=== PATIENT | female | born 1930 | race Caucasian/White ===

== ENCOUNTER 2017-01-03 08:32 | Day surgery (SDC) | payer MEDICARE ==
[2017-01-03] MEDS ORDERED: ALPRAZolam 0.25 MG TAB PO ONE (08:33)
[2017-01-03] MEDS ORDERED: HYDROmorphone 1 MG/ML 1 ML SYRINGE IVP PRN (08:33)
[2017-01-03 09:18] VITALS: RESP 14; TEMP 97.5
[2017-01-03 09:32] LABS: Mean Platelet Volume 6.9
[2017-01-03 09:34] LABS: Prothrombin Time 10.6 sec (9.0-12.0)
[2017-01-03 10:18] VITALS: BP 145/85; PULSE 72
--- NOTE | 2017-01-03 11:26 | CT ---
EXAMINATION TYPE: CT discontinued procedure DATE OF EXAM: 01/03/2017 COMPARISON: NONE HISTORY: discontinued liver biopsy CT DLP: 384.0 mGycm Automated exposure control for dose reduction was used. FINDINGS: Safe percutaneous access was not present. Case discussed with the patient and the patient wished to d efer procedure. MRI recommended to fully assess the lesion. IMPRESSION: DEFERRED PROCEDURE RECOMMEND MRI TO FULLY ASSESS THE LESION PRIOR TO BIOPSY. ON TODAY'S EXAM PERCUTAN EOUS ACCESS WAS LIMITED.
== END 2017-01-03 11:22 | disposition home or self-care (01) ==
LOC: RADPROMAIN 08:32
PROVIDERS: ATTEND Surgery
DX: K76.89 Other specified diseases of liver (principal); Z53.09 Procedure and treatment not carried out because of other contraindication
CPT/HCPCS: 76380; 85049; 85610

== ENCOUNTER → 2017-01-16 | Outpatient (CLI) | payer MEDICARE, OTHER ==
[2017-01-16 14:27] LABS: Non-African American GFR(MDRD) 59 (>60 ml/min/1.73 sqM)
--- NOTE | 2017-01-17 16:54 | MR ---
EXAMINATION TYPE: MR liver wo/w con DATE OF EXAM: 01/16/2017 COMPARISON: NONE HISTORY: Hepatic lesion. Characterization. History of breast cancer in 2007. CONTRAST: Standard multiplanar, multisequence MRI departmental protocol utilizing 10 mL intravenous Gadavist FINDINGS: There is a mildly nodular contour of the liver most evident on out of phase imaging. There is no evid ence of signal dropout between in phase and out of phase imaging. At the level the middle portal vein predominantly within segment IVb of the liver there is a T1 hypointense mass containing mild signal dropout on out of phase imaging (difference of 48). This lesion is subtly T2 hyperintense. Mild intra hepatic biliary ductal dilatation is seen inferiorly. This is demonstrated on series 901 image 291. P rogressive delayed enhancement is seen with delayed enhancement of a pseudocapsule. There is thought to be subtle capsular retraction with contour change of the liver peripheral to the mass. The portal vein appears patent. This mass measures 4.2 x 3.3 cm. This is a solitary lesion. No recanalization of the umbilical vein is seen. No gastrohepatic or splenic varices are noted. Hypointense T2 appearance of the liver is not maintained on fat saturation sequences and is not favored to represent iron over load. There is no evidence of extrahepatic biliary ductal dilatation. Few gallstones layer within the gallb ladder body. Bilateral renal sinus cysts and punctate right lower pole cortical cyst that is too small to accurate ly characterize are seen as well as extrarenal pelvis sees. Adrenal glands and spleen are of normal e nhancement and morphology. 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 No pancreatic ductal dilatatio n. Moderate hiatal hernia is also incidentally noted. IMPRESSION: 1. 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 Definitive percutaneous biopsy is recommended. 2. 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 Annual follow-up is recommend ed with MRCP with and without contrast. 3. Bilateral renal sinus cysts. 4. Cholelithiasis. 5. Moderate hiatal hernia.
== END | disposition home or self-care (01) ==
LOC: RADMRIMAIN 13:40
PROVIDERS: ATTEND Surgery
DX: R16.0 Hepatomegaly, not elsewhere classified (principal)
CPT/HCPCS: 82565; 74183; 36415; A9581

== ENCOUNTER 2017-02-11 08:52 | Day surgery (SDC) | payer MEDICARE, OTHER ==
[~2017-02-11 08:52] MED LIST: ALPRAZolam 0.25 MG TAB PO ONE; HYDROmorphone 0.5 MG/0.5 ML SYRINGE IVP PRN
[2017-02-11 09:24] LABS: Mean Platelet Volume 6.9
[2017-02-11 09:30] VITALS: RESP 14; TEMP 97.7
[2017-02-11 09:41] LABS: Partial Thromboplastin Time 24.1 sec (22.0-30.0)
[2017-02-11 09:48] LABS: Prothrombin Time 10.6 sec (9.0-12.0)
[2017-02-11 09:58] VITALS: BP 181/82; PULSE 61
--- NOTE | 2017-02-11 12:40 | US ---
Discontinued liver biopsy HISTORY: Abnormal CT, abnormal liver MRI, breast cancer Correlation to prior CT 01/03/2017, MR liver 01/16/2017 Real-time ultrasound was performed for evaluation for liver biopsy. The previously described abnormal ities from prior CT and MRI within the liver is only minimal residual mixed hypoechoic focus measurin g approximately 1.5 x 2 cm. Following discussion with the patient, no biopsy was performed at this time. Follow-up CT or MRI scan suggested. Case discussed with Dr. Gilman personally.
== END 2017-02-11 10:43 | disposition home or self-care (01) ==
LOC: RADPROMAIN 08:52
PROVIDERS: ATTEND Surgery
DX: K76.89 Other specified diseases of liver (principal); C50.919 Malignant neoplasm of unspecified site of unspecified female breast; Z53.8 Procedure and treatment not carried out for other reasons
CPT/HCPCS: 76705; 85049; 85610; 85730

== ENCOUNTER → 2017-06-26 | Outpatient (CLI) | payer MEDICARE, OTHER ==
[2017-06-26 14:15] LABS: Basophils % (A) 1 %; Eosinophils # (A) 0.2 k/uL (0-0.7); Eosinophils % (A) 2 %; HCT 35.8 % (34.0-46.0); Lymphocytes # (A) 1.4 k/uL (1.0-4.8); Lymphocytes % (A) 20 %; MCH 31.8 pg (25.0-35.0); MCHC 33.5 g/dL (31.0-37.0); Mean Platelet Volume 6.4; Monocytes # (A) 0.5 k/uL (0-1.0); Monocytes % (A) 7 %; Neutrophils # (A) 4.8 k/uL (1.3-7.7); Neutrophils % (A) 67 %; Platelet Count 288 k/uL (150-450); RBC 3.76 m/uL (3.80-5.40); RDW 12.9 % (11.5-15.5); WBC 7.1 k/uL (3.8-10.6)
[2017-06-26 14:58] LABS: Calcium 9.3 mg/dL (8.4-10.2); Potassium 4.6 mmol/L (3.5-5.1)
== END | disposition home or self-care (01) ==
LOC: LABPAT 13:19
PROVIDERS: ATTEND Urology
DX: Z01.812 Encounter for preprocedural laboratory examination (principal); R31.0 Gross hematuria
CPT/HCPCS: 80048; 85025

== ENCOUNTER 2017-07-03 05:58 | Day surgery (SDC) | payer MEDICARE, OTHER ==
[2017-06-27 15:00] VITALS: BMI 32.5
[~2017-07-03 05:58] MED LIST changes: -ALPRAZolam 0.25 MG TAB PO ONE; -HYDROmorphone 0.5 MG/0.5 ML SYRINGE IVP PRN; +LACTATED RINGERS 1,000 ML IV SCH; +MORPHINE SULFATE 4 MG/ML SYRINGE IV PRN; +Pre Op ABX Message 1 EACH MISC MISCELLANE ONE
[2017-07-03 06:50] VITALS: PULSE 70; RESP 16; TEMP 97.7
[2017-07-03 06:53] VITALS: BP 199/81
== END 2017-07-03 07:35 | disposition home or self-care (01) ==
LOC: OR 05:58
PROVIDERS: ATTEND Urology
DX: R31.0 Gross hematuria (principal); Z53.8 Procedure and treatment not carried out for other reasons

== ENCOUNTER → 2017-07-17 | Outpatient (CLI) | payer MEDICARE, OTHER ==
[2017-07-17 12:54] LABS: Basophils % (A) 0 %; Eosinophils # (A) 0.2 k/uL (0-0.7); Eosinophils % (A) 2 %; HCT 36.5 % (34.0-46.0); HGB 12.4 gm/dL (11.4-16.0); Lymphocytes # (A) 1.5 k/uL (1.0-4.8); Lymphocytes % (A) 19 %; MCV 94.3 fL (80.0-100.0); Mean Platelet Volume 6.4; Monocytes # (A) 0.6 k/uL (0-1.0); Monocytes % (A) 7 %; Neutrophils # (A) 5.4 k/uL (1.3-7.7); Neutrophils % (A) 69 %; Platelet Count 287 k/uL (150-450); RBC 3.87 m/uL (3.80-5.40); RDW 12.5 % (11.5-15.5); WBC 7.8 k/uL (3.8-10.6)
[2017-07-17 13:08] LABS: Calcium 9.7 mg/dL (8.4-10.2); Potassium 4.4 mmol/L (3.5-5.1)
== END | disposition home or self-care (01) ==
LOC: LABPAT 11:58
PROVIDERS: ATTEND Urology
DX: Z01.812 Encounter for preprocedural laboratory examination (principal); R31.0 Gross hematuria
CPT/HCPCS: 36415; 80048; 85025

== ENCOUNTER 2017-07-24 06:41 | Day surgery (SDC) | payer MEDICARE, OTHER ==
[2017-07-18 14:42] VITALS: BMI 30.9
[~2017-07-24 06:41] MED LIST changes: +LIDOCAINE 1% 20 ML VIAL (10MG/ML) FOR IV START INTRADERMA PRN; -MORPHINE SULFATE 4 MG/ML SYRINGE IV PRN
[2017-07-24] MEDS ORDERED: ONDANSETRON 4 MG/2 ML VIAL IVP ONE (07:56)
[2017-07-24] MEDS ORDERED: fentaNYL (PF) 50 MCG/ML 2 ML AMP ONE (08:04)
[2017-07-24] MEDS ORDERED: PROPOFOL 10 MG/ML 20 ML VIAL IV ONE (08:04)
[2017-07-24] MEDS ORDERED: LIDOCAINE 1% INJ 10MG/ML (20 ML MDV) ONE (08:04)
[2017-07-24] MEDS ORDERED: SUCCINYLCHOLINE CHLORIDE 100 MG/5 ML SYR IV ONE (08:04)
[2017-07-24] MEDS ORDERED: ceFAZolin 1,000 MG VIAL IVPB ONE (08:32)
[2017-07-24 08:53] VITALS: TEMP 97.4
--- NOTE | 2017-07-24 08:57 | P.OP ---
Date of Procedure: 07/24/17 Preoperative Diagnosis: History of gross hematuria with abnormality on anterior bladder wall Postoperative Diagnosis: History of gross hematuria with abnormality on anterior bladder wall Procedure(s) Performed: Transurethral biopsy of abnormality on the anterior bladder wall Anesthesia: CONCEPCIONA Surgeon: Alec Bey Estimated Blood Loss (ml): 3 Pathology: other (Biopsy anterior bladder wall) Condition: stable Disposition: PACU Indications for Procedure: The patient is an 87-year-old female with a history of gross hematuria. Computed tomography scan of the abdomen and pelvis showed no abnormalities of the upper urinary system. Cystoscopy in the office identified irregularity on the anterior bladder wall near the bladder neck. The patient has a history of pelvic radiation therapy and it's unclear whether the abnormality is from sequela from radiation therapy or another problem. Biopsy of the abnormality is planned. Description of Procedure: The patient was taken to the operating suite where adequate general anesthesia via orotracheal intubation was instituted. The patient was placed in the dorsal lithotomy position with her legs suspended from padded Khadar stirrups. The genitalia was prepped with Betadine soap and draped in a sterile fashion. The external genitalia and urethral meatus were unremarkable. The 25-Frisian resectoscope sheath with obturator was inserted into the bladder. The bladder was examined. Both ureteral orifices were of normal location and configuration and effluxed clear urine. There were ectatic vessels throughout the bladder consistent with previous radiation therapy. On the anterior bladder wall near the bladder neck was an area of edema and mucosal irregularity measuring 1-1/2- 2 cm in diameter. The remainder the bladder was unremarkable. Using the loop cutting electrode [employer] samples from the anterior bladder wall were obtained. Bleeding was minimal and was controlled using electrocautery. The biopsies were retrieved from the bladder through the resectoscope. The bladder was drained and the resectoscope was withdrawn. A 16 -Frisian Zarco catheter was inserted and was left to gravity drainage. The patient tolerated the procedure well and left the operative room awake and in satisfactory condition. Blood loss was less than 2 or 3 mL. Patient's catheter will remain in place for 2-3 days prior to removal. Further recommendations are dependent on the results of the biopsies obtained.
[2017-07-24 09:55] VITALS: RESP 18
[2017-07-24 10:44] VITALS: BP 169/69; PULSE 61
== END 2017-07-24 11:36 | disposition home or self-care (01) ==
LOC: OR 06:41
PROVIDERS: ATTEND Urology
DX: C67.9 Malignant neoplasm of bladder, unspecified (principal); Z85.89 Personal history of malignant neoplasm of other organs and systems; E66.9 Obesity, unspecified; Z68.30 Body mass index [BMI] 30.0-30.9, adult; I10 Essential (primary) hypertension; E07.9 Disorder of thyroid, unspecified; Z79.2 Long term (current) use of antibiotics; Z79.899 Other long term (current) drug therapy; Z88.6 Allergy status to analgesic agent; Z88.8 Allergy status to other drugs, medicaments and biological substances; Z91.048 Other nonmedicinal substance allergy status
CPT/HCPCS: 88305; 52204; J0690; J2001; J3010; J0330; J2704

== ENCOUNTER 2017-09-23 11:04 | Inpatient (IN) | payer MEDICARE, OTHER ==
[2017-09-23] MEDS ORDERED: SODIUM CHLORIDE 0.9% 1,000 ML IV ONE (11:44)
--- NOTE | 2017-09-23 11:50 | ED ---
General Adult HPI - General Chief complaint: Weakness Stated complaint: weakness Time Seen by Provider: 09/23/17 11:22 Source: patient Mode of arrival: EMS Limitations: no limitations - History of Present Illness Initial comments: Patient is an 87-year-old female presents with the chief complaint of Rigors and weakness. The patient states that she has bladder cancer that is currently not being treated, patient states that she has already had radiation and is unsure if she wants to have chemo. she was recently discharged from a hospice home and was doing well at her home until last night. the patient states she currently is not enrolled in hospice. she cannot identify any inciting incidences, nor does she identify any localizing symptoms. there are no aggravating or alleviating factors. timing is constant. she admits to nausea and vomiting. she has mild pain in the RLQ - Related Data Home Medications Medication Instructions Recorded Confirmed Levothyroxine Sodium [Synthroid] 100 mcg PO DAILY 12/25/16 09/23/17 Lisinopril [Zestril] 20 mg PO DAILY 07/18/17 09/23/17 Cystex Cranberry 15 ml PO DAILY 09/23/17 09/23/17 Mirabegron [Myrbetriq] 50 mg PO DAILY 09/23/17 09/23/17 Allergies Allergy/AdvReac Type Severity Reaction Status Date / Time No Known Allergies Allergy Verified 09/23/17 11:51 Review of Systems ROS Statement: Those systems with pertinent positive or pertinent negative responses have been documented in the HPI. ROS Other: All systems not noted in ROS Statement are negative. Constitutional: Reports: chills Respiratory: Reports: cough Past Medical History Past Medical History: Hypertension, Thyroid Disorder Additional Past Medical History / Comment(s): CA uterine, breast cancer 2006 ( radiation treatment - patient says it was breast was a very vague diagnosis and was sent to 2 different labs)- urosepsis 12/06, low calcium, anemia, Chronic recurrent UTI, recent blood and blood clots in urine-pt notified dr of sx History of Any Multi-Drug Resistant Organisms: None Reported Past Surgical History: Hysterectomy, Joint Replacement, Tonsillectomy Additional Past Surgical History / Comment(s): right knee replacement, cataracts bilateral, surgery on bilateral feet. Past Anesthesia/Blood Transfusion Reactions: No Reported Reaction Past Psychological History: No Psychological Hx Reported Smoking Status: Former smoker - Past Family History Father Family Medical History: Cancer Additional Family Medical History / Comment(s): TESTICULAR Mother Family Medical History: No Reported History General Exam Limitations: no limitations General appearance: alert, in no apparent distress Head exam: Present: atraumatic, normocephalic Eye exam: Present: normal appearance, PERRL ENT exam: Present: mucous membranes moist Neck exam: Present: normal inspection Respiratory exam: Present: normal lung sounds bilaterally. Absent: respiratory distress, wheezes Cardiovascular Exam: Present: regular rate, normal rhythm GI/Abdominal exam: Present: soft, tenderness (RLQ mildly tender to palpation). Absent: distended Rectal exam: Present: deferred Extremities exam: Present: normal inspection Back exam: Present: normal inspection Neurological exam: Present: alert, oriented X3 Psychiatric exam: Present: normal affect, normal mood Skin exam: Present: warm, dry, intact Course Vital Signs 09/23/17 09/23/17 09/23/17 11:07 12:03 13:48 Temperature 97.4 F L Pulse Rate 100 85 Respiratory 18 18 18 Rate Blood Pressure 153/77 91/50 O2 Sat by Pulse 95 96 Oximetry Medical Decision Making - Medical Decision Making patient with a history of bladder CA presents with a CC of weakness and rigors. on initial evaluation, VS stable, patient in no acute distress. patient to be evaluated with basic labs, EKG, and troponin. chest xray and CT abdomen / pelvis included in work up. EKG performed at 1257 shows NSR with a rate of 94 BPM. there is some artifact that somewhat limits interpretation, however segments appear to be within normal limits, no ST elevations or depressions. EKG essentially unremarkable. 1:39PM Lab called me with a critical troponin of 0.117. at this time, patient given aspirin, she denies chest pain, will hold on anticoagulation at this time. CT abdomen and pelvis shows b/l hydronephrosis with left sided hydroureter. no obstruction seen. there is air within the urinary bladder all consistent with pyelonephritis. patients microbiology reviewed, no previous records. patient started on rocephin. will plan to admit patient for IV abx and hydration. Case discussed with Dr. Greenberg who accepts admission with consult to Oncology and Cardiology. patient agreeable with care plan. - Lab Data Result diagrams: 09/23/17 12:30 09/23/17 12:30 Lab Results 09/23/17 09/23/17 09/23/17 Range/Units 12:30 12:30 12:30 WBC 15.0 H (3.8-10.6) k/uL RBC 4.00 (3.80-5.40) m/uL Hgb 12.1 (11.4-16.0) gm/dL Hct 37.1 (34.0-46.0) % MCV 92.8 (80.0-100.0) fL MCH 30.2 (25.0-35.0) pg MCHC 32.6 (31.0-37.0) g/dL RDW 14.3 (11.5-15.5) % Plt Count 258 (150-450) k/uL Neutrophils % (Manual) 76 % Band Neutrophils % 19 % Lymphocytes % (Manual) 4 % Monocytes % (Manual) 1 % Metamyelocytes % 2 % Neutrophils # (Manual) 14.20 H (1.3-7.7) k/uL Lymphocytes # (Manual) 0.60 L (1.0-4.8) k/uL Monocytes # (Manual) 0.15 (0-1.0) k/uL Metamyelocytes # (Man) 0.30 H (0) k/uL Nucleated RBCs 0 (0-0) /100 WBC Sodium 141 (137-145) mmol/L Potassium 4.1 (3.5-5.1) mmol/L Chloride 103 (98-107) mmol/L Carbon Dioxide 25 (22-30) mmol/L Anion Gap 13 mmol/L BUN 20 H (7-17) mg/dL Creatinine 1.29 H (0.52-1.04) mg/dL Est GFR (CKD-EPI)AfAm 43 (>60 ml/min/1.73 sqM) Est GFR (CKD-EPI)NonAf 37 (>60 ml/min/1.73 sqM) Glucose 121 H (74-99) mg/dL Calcium 9.2 (8.4-10.2) mg/dL Total Bilirubin 0.6 (0.2-1.3) mg/dL AST 30 (14-36) U/L ALT 21 (9-52) U/L Alkaline Phosphatase 66 (38-126) U/L Troponin I 0.117 H* (0.000-0.034) ng/mL Total Protein 6.1 L (6.3-8.2) g/dL Albumin 3.2 L (3.5-5.0) g/dL Urine Color Urine Appearance (Clear) Urine pH (5.0-8.0) Ur Specific [place] (1.001-1.035) Urine Protein (Negative) Urine Glucose (UA) (Negative) Urine Ketones (Negative) Urine Blood (Negative) Urine Nitrite (Negative) Urine Bilirubin (Negative) Urine Urobilinogen (<2.0) mg/dL Ur Leukocyte Esterase (Negative) Urine RBC (0-5) /hpf Urine WBC (0-5) /hpf Urine WBC Clumps (None) /hpf Ur Squamous Epith Cells (0-4) /hpf Urine Bacteria (None) /hpf Urine Mucus (None) /hpf 09/23/17 Range/Units 12:30 WBC (3.8-10.6) k/uL RBC (3.80-5.40) m/uL Hgb (11.4-16.0) gm/dL Hct (34.0-46.0) % MCV (80.0-100.0) fL MCH (25.0-35.0) pg MCHC (31.0-37.0) g/dL RDW (11.5-15.5) % Plt Count (150-450) k/uL Neutrophils % (Manual) % Band Neutrophils % % Lymphocytes % (Manual) % Monocytes % (Manual) % Metamyelocytes % % Neutrophils # (Manual) (1.3-7.7) k/uL Lymphocytes # (Manual) (1.0-4.8) k/uL Monocytes # (Manual) (0-1.0) k/uL Metamyelocytes # (Man) (0) k/uL Nucleated RBCs (0-0) /100 WBC Sodium (137-145) mmol/L Potassium (3.5-5.1) mmol/L Chloride (98-107) mmol/L Carbon Dioxide (22-30) mmol/L Anion Gap mmol/L BUN (7-17) mg/dL Creatinine (0.52-1.04) mg/dL Est GFR (CKD-EPI)AfAm (>60 ml/min/1.73 sqM) Est GFR (CKD-EPI)NonAf (>60 ml/min/1.73 sqM) Glucose (74-99) mg/dL Calcium (8.4-10.2) mg/dL Total Bilirubin (0.2-1.3) mg/dL AST (14-36) U/L ALT (9-52) U/L Alkaline Phosphatase (38-126) U/L Troponin I (0.000-0.034) ng/mL Total Protein (6.3-8.2) g/dL Albumin (3.5-5.0) g/dL Urine Color Dark Red Urine Appearance Turbid H (Clear) Urine pH 7.0 (5.0-8.0) Ur Specific [place] 1.016 (1.001-1.035) Urine Protein 2+ H (Negative) Urine Glucose (UA) Negative (Negative) Urine Ketones Negative (Negative) Urine Blood Small H (Negative) Urine Nitrite Negative (Negative) Urine Bilirubin Negative (Negative) Urine Urobilinogen <2.0 (<2.0) mg/dL Ur Leukocyte Esterase Moderate H (Negative) Urine RBC >182 H (0-5) /hpf Urine WBC >182 H (0-5) /hpf Urine WBC Clumps Many H (None) /hpf Ur Squamous Epith Cells 74 H (0-4) /hpf Urine Bacteria Many H (None) /hpf Urine Mucus Many H (None) /hpf Disposition Clinical Impression: Elevated troponin, JEAN (acute kidney injury), Urinary tract infection, Hydronephrosis Disposition: ADMITTED IP TO THIS HOSP Condition: Good Referrals: Kesha Kendall DO [Primary Care Provider] - 1-2 days Decision to Admit Reason: Admit from [facility] - Out of Hospital Transfer - Req. Specs Out of Hospital Transfer - Requested Specifics: Other Non-Acute
[2017-09-23] MEDS ORDERED: PANTOPRAZOLE 40 MG/10 ML VIAL IVP STA (12:41)
[2017-09-23] MEDS ORDERED: ONDANSETRON 4 MG/2 ML VIAL IVP STA (12:41)
[2017-09-23 12:57] LABS: Albumin 3.2 g/dL (3.5-5.0); Calcium 9.2 mg/dL (8.4-10.2); Potassium 4.1 mmol/L (3.5-5.1); Total Bilirubin 0.6 mg/dL (0.2-1.3); Total Protein 6.1 g/dL (6.3-8.2)
[2017-09-23 12:59] LABS: HCT 37.1 % (34.0-46.0); HGB 12.1 gm/dL (11.4-16.0); MCH 30.2 pg (25.0-35.0); MCHC 32.6 g/dL (31.0-37.0); MCV 92.8 fL (80.0-100.0); Mean Platelet Volume 6.7; Platelet Count 258 k/uL (150-450); RDW 14.3 % (11.5-15.5)
--- NOTE | 2017-09-23 13:07 | XR ---
EXAMINATION TYPE: XR chest 2V DATE OF EXAM: 09/23/2017 COMPARISON: NONE HISTORY: Fall with weakness TECHNIQUE: Frontal and lateral views of the chest are obtained. FINDINGS: There is no focal air space opacity, pleural effusion, or pneumothorax seen. The cardiac silhouette size is within normal limits. The osseous structures are intact. Multilevel mild degener ative changes of the thoracic spine and acromioclavicular arthropathy are noted. IMPRESSION: No acute cardiopulmonary process.
[2017-09-23 13:13] LABS: Appearance,Urine Turbid (Clear); Bacteria,Urine Many /hpf; Bilirubin,Urine Negative (Negative); Blood,Urine Small (Negative); Color,Urine Dark Red; Glucose,Urine (UA) Negative (Negative); Ketones,Urine Negative (Negative); Leukocyte Esterase,Urine Moderate (Negative); Mucus,Urine Many /hpf; Nitrite,Urine Negative (Negative); Protein,Urine 2+ (Negative); RBC,Urine >182 /hpf (0-5); Squamous Epithelial Cell,Urine 74 /hpf (0-4); Urobilinogen,Urine <2.0 mg/dL (<2.0); WBC,Urine >182 /hpf (0-5)
[2017-09-23 13:24] LABS: Specific Gravity,Urine 1.016 (1.001-1.035)
--- NOTE | 2017-09-23 13:33 | CT ---
EXAMINATION TYPE: CT abdomen pelvis wo con DATE OF EXAM: 09/23/2017 COMPARISON: NONE HISTORY: Weakness and pain CT DLP: 766 mGycm Examination of the solid and hollow viscera is limited given the lack of contrast. FINDINGS: LUNG BASES: No evidence for nodule. No evidence for infiltrate. LIVER/GB: There is evidence of cholelithiasis. No wall thickening is present. No space-occupying hepa tic lesion. PANCREAS: No pancreatic mass identified. No inflammatory process seen. SPLEEN: No evidence for splenomegaly. No intrasplenic lesions seen. ADRENALS: No adrenal nodules identified. No evidence for thickening. KIDNEYS: No evidence for renal mass. There is bilateral hydronephrosis left greater than right with l eft-sided hydroureter. Perinephric stranding is evident. I do not see evidence for obstructing calcul us at this time. Zarco catheter is seen within the urinary bladder. There is air within the urinary b ladder as well as hyperdense material which may reflect hemorrhagic contents. Correlate clinically. BOWEL: Appendix has a normal appearance. No evidence of bowel obstruction. No inflammatory process. M oderate fixed hiatal hernia noted. Lymph nodes: No evidence for adenopathy greater than 1 cm. Abdominal aorta: Atheromatous changes seen. No evidence for aneurysm. Genital organs: No significant abnormality. Other: No significant abnormality. IMPRESSION: There is bilateral hydronephrosis left greater than right with left-sided hydroureter. Perinephric st randing is evident. I do not see evidence for obstructing calculus at this time. Zarco catheter is se en within the urinary bladder. There is air within the urinary bladder as well as hyperdense material which may reflect hemorrhagic contents.
[2017-09-23] MEDS ORDERED: cefTRIAXone IN SWFI 1,000 MG/10 ML SYRINGE IVP STA (13:37)
[2017-09-23] MEDS ORDERED: ASPIRIN 81 MG PO STA (13:37)
[2017-09-23 13:41] LABS: Band Neutrophils % 19 %; Metamyelocytes % 2 %; Monocytes # (M) 0.15 k/uL (0-1.0); Neutrophils % (M) 76 %; Nucleated Red Blood Cells 0 /100 WBC (0-0); Total Cells Counted 200
[2017-09-23] MEDS ORDERED: IBUPROFEN 400 MG TAB PO PRN (13:55)
[2017-09-23] MEDS ORDERED: HYDROcodone/APAP 5-325MG 1 EACH TAB PO PRN (13:55)
[2017-09-23] MEDS ORDERED: ONDANSETRON 4 MG/2 ML VIAL IVP PRN (13:55)
[2017-09-23] MEDS ORDERED: NALOXONE 0.4 MG/ML 1 ML VIAL IV PRN (13:55)
[2017-09-23] MEDS: MYRBETRIQ (Mirabegron) 50 MG PO SCH (17:15)
[2017-09-23] MEDS: LACTATED RINGERS 1,000 ML IV SCH (17:15)
[2017-09-24] MEDS: LACTATED RINGERS 1,000 ML IV SCH ×2 (03:00→11:48)
[2017-09-24] MEDS: LEVOTHYROXINE 100 MCG TAB PO SCH (05:46)
[2017-09-24 06:20] LABS: HCT 31.6 % (34.0-46.0); HGB 10.1 gm/dL (11.4-16.0); MCH 29.9 pg (25.0-35.0); MCHC 31.9 g/dL (31.0-37.0); MCV 93.8 fL (80.0-100.0); Mean Platelet Volume 6.4; Platelet Count 187 k/uL (150-450); RBC 3.37 m/uL (3.80-5.40); RDW 14.3 % (11.5-15.5); WBC 23.3 k/uL (3.8-10.6)
[2017-09-24 06:25] LABS: Calcium 8.3 mg/dL (8.4-10.2); Potassium 4.8 mmol/L (3.5-5.1)
[2017-09-24 07:13] LABS: Band Neutrophils % 34 %; Metamyelocytes % 3 %; Monocytes # (M) 0.93 k/uL (0-1.0); Neutrophils % (M) 57 %; Nucleated Red Blood Cells 0 /100 WBC (0-0); Total Cells Counted 200
[2017-09-24 07:14] LABS: Toxic Vacuolation Present
[2017-09-24 07:15] LABS: Anisocytosis (M) Present
[2017-09-24 07:16] LABS: Poikilocytosis (M) Present; Polychromasia Present
[2017-09-24] MEDS: MYRBETRIQ (Mirabegron) 50 MG PO SCH (08:02)
[2017-09-24] MEDS: PIPERACILLIN-TAZOBACTAM 3.375 GM in DEXTROSE/WATER 1 50ML.BAG IVPB SCH ×2 (11:49→16:08)
--- NOTE | 2017-09-24 12:00 | HP ---
HISTORY AND PHYSICAL DATE OF OF ADMISSION: 09/23/2017 DATE OF SERVICE: 09/23/2017 PRESENT COMPLAINT: Chills, rigors. HISTORY OF PRESENTING COMPLAINT: This is a patient I saw yesterday on September 23, 2017 on the medical floor. Patient follows with Dr. Kendall. Chronic stable medical conditions include hypertension, hypothyroid. Patient has a history of uterine cancer treated with radiation treatment and breast cancer treated with radiation treatment in the past. Patient has been diagnosed with bladder cancer. Did see Dr. Bey and was due to go down to [facility]. Patient has been losing her appetite and weight loss, felt really poorly, had chills and rigors and presented to the ER. Patient was given one dose of IV ceftriaxone, sudden IV fluids and also had a small troponin leak for which Cardiology was consulted. Denies any chest pain. Patient definitely has urinary symptoms with frequency and hard frequency and strong urine. Patient feels rather exhausted, run down; hence, admitted for the same. REVIEW OF SYSTEMS: CONSTITUTIONAL: Chills, rigors, tired, run down, decreased appetite. HEENT: None. RESPIRATORY: None. CARDIOVASCULAR: None. GASTROINTESTINAL: None. GENITOURINARY: As above. MUSCULOSKELETAL: None. DERMATOLOGICAL: None. HEMATOLOGICAL: None. LYMPHATIC: None. PSYCHIATRY: None. NEUROLOGICAL: None. PAST MEDICAL HISTORY: Hypertension, uterine cancer treated with radiation, breast cancer in 2006 treated with radiation, anemia, recurrent UTIs, bladder cancer diagnosed in July of this year. PAST SURGICAL HISTORY: Bladder surgery, hysterectomy, joint replacement, tonsillectomy, right knee replacement, bilateral cataract surgery. SOCIAL HISTORY: Lives by herself. Stopped smoking 25 years ago. Smoked for 25 years. Normally uses a walker. FAMILY HISTORY: Testicular cancer. HOME MEDICATIONS: 1. Myrbetriq 50 mg p.o. daily. 2. Zestril 20 mg p.o. daily. 3. Synthroid 100 mcg p.o. daily. 4. Cystex cranberry 15 mL p.o. daily. ALLERGIES: None. PHYSICAL EXAMINATION: Temperature 97.4, pulse 100, respiration 18, blood pressure on presentation did drop down to 91/50, pulse ox 96% on 2 LT, initially was 95% on room air. GENERAL APPEARANCE: lying in bed, rather lethargic, tired appearing. EYES: Pupils equal, conjunctivae normal. HEENT: External appearance of nose and ears normal. Oral cavity normal. NECK: JVD not raised. Mass not palpable. RESPIRATORY: Effort normal. LUNGS: Fair entry. CARDIOVASCULAR: First and second sounds are normal, no edema. Mild suprapubic tenderness. No guarding or rigidity. Liver and spleen not palpable. LYMPHATIC: No lymph nodes palpable in neck or axillae. PSYCHIATRY: Alert and oriented x3. Mood and affect normal. NEUROLOGICAL: Pupils equal. Cranial nerves grossly intact. Power and sensation grossly intact. INVESTIGATIONS: White count 15, neutrophils 14.2, BUN 20, creatinine 1.29. Troponin 0.0117. Albumin 3.2. UA positive for leukocyte esterase, WBC, RBC. ASSESSMENT: 1. Acute complicated urinary tract infection with cystitis causing sepsis, present on admission with patient having chills and rigors. 2. Bladder cancer. Patient was seen by Dr. Bey due to follow up with [facility]. 3. Troponin leak, probably from hemodynamic mismatch. No evidence of acute coronary syndrome. 4. Acute renal failure, probably acute tubular necrosis from sepsis. 5. Obesity; body mass index of 30.4. 6. Essential hypertension. 7. Hypothyroid. PLAN: Patient is started on IV fluids. Blood cultures to be done. Patient also did receive a dose of ceftriaxone in the ER. Will start the patient later on Zosyn. Care was discussed with the patient. Cultures of urine also have been sent off. MMODL / IJN: [id number] /
--- NOTE | 2017-09-24 15:37 | P.CRDCN ---
History of Present Illness History of present illness: Mrs. Jay is a pleasant 87-year-old female past medical history significant for hypertension, hypothyroidism, uterine cancer, breast cancer and current bladder cancer. We have been asked to see the patient in consultation secondary to troponin elevation. 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 She states she had a fall yesterday that was associated with extreme shaking. Prior to falling she said she was trying to take her [place] bag and place it in her bed when she became extremely shaky and jittery and fell to the ground. She denies feeling symptoms of chest pain, shortness of breath, dizziness, palpitations or diaphoresis. Once she fell she was unable to get herself up and EMS was called. She has been diagnosed with an acute complicated urinary tract infection with cystitis causing sepsis. EKG reveals first-degree AV block with no acute ST or T-wave abnormality noted. Chest x-ray is negative for an acute cardiopulmonary process. Laboratory data reviewed, WBC 23.3, hemoglobin 10.1, sodium 136, creatinine 1.64 , potassium 4.8, troponin 0.117. Current cardiac medications include lisinopril 20 mg daily. Review of Systems At the time of my exam: CONSTITUTIONAL: Denies fever. Denies chills. EYES: Denies blurred vision. Denies vision changes. Denies eye pain. EARS, NOSE, MOUTH & THROAT: Denies headache. Denies sore throat. Denies ear pain. CARDIOVASCULAR: Denies chest pain. Denies shortness of breath. Denies orthopnea. Denies PND. Denies palpitations. RESPIRATORY: Denies cough. GASTROINTESTINAL: Denies abdominal pain. Denies diarrhea. Denies constipation. Denies nausea. Denies vomiting. MUSCULOSKELETAL: Denies myalgias. INTEGUMENTARY: Denies pruitis. Denies rash. NEUROLOGIC: Denies numbness. Denies tingling. Denies weakness. PSYCHIATRIC: Denies anxiety. Denies depression. ENDOCRINE: Denies fatigue. Denies weight change. Denies polydipsia. Denies polyurina. GENITOURINARY: Denies burning, hematuria or urgency with micturation. HEMATOLOGIC: Denies history of anemia. Denies bleeding. Past Medical History Past Medical History: Hypertension, Thyroid Disorder Additional Past Medical History / Comment(s): CA uterine, breast cancer 2006 ( radiation treatment - patient says it was breast was a very vague diagnosis and was sent to 2 different labs)- urosepsis 12/06, low calcium, anemia, recurrent UTI's, bladder cancer(sx) -2017 History of Any Multi-Drug Resistant Organisms: None Reported Past Surgical History: Bladder Surgery, Hysterectomy, Joint Replacement, Tonsillectomy Additional Past Surgical History / Comment(s): right knee replacement, cataracts bilateral, surgery on bilateral feet. Past Anesthesia/Blood Transfusion Reactions: No Reported Reaction Past Psychological History: No Psychological Hx Reported Smoking Status: Former smoker Past Alcohol Use History: None Reported Additional Past Alcohol Use History / Comment(s): smoked 20-25 years socially quit 25 years ago Past Drug Use History: None Reported - Past Family History Father Family Medical History: Cancer Additional Family Medical History / Comment(s): TESTICULAR Mother Family Medical History: No Reported History Medications and Allergies Home Medications Medication Instructions Recorded Confirmed Type Levothyroxine Sodium [Synthroid] 100 mcg PO DAILY 12/25/16 09/23/17 History Lisinopril [Zestril] 20 mg PO DAILY 07/18/17 09/23/17 History Cystex Cranberry 15 ml PO DAILY 09/23/17 09/23/17 History Mirabegron [Myrbetriq] 50 mg PO DAILY 09/23/17 09/23/17 History Allergies Allergy/AdvReac Type Severity Reaction Status Date / Time No Known Allergies Allergy Verified 09/23/17 11:51 Physical Exam Vitals: Vital Signs Temp Pulse Resp BP Pulse Ox Pulse Ox Pulse Ox 09/24/17 15:07 98 95 09/24/17 12:00 97.1 F L 83 18 111/60 96 09/24/17 08:00 97.2 F L 93 18 134/54 97 09/24/17 04:00 97 F L 82 20 128/59 98 09/24/17 00:00 96.6 F L 84 16 103/58 98 09/23/17 20:00 97.1 F L 77 24 105/51 94 L 09/23/17 16:00 16 Intake and Output 09/24/17 09/24/17 09/24/17 06:59 14:59 22:59 Intake Total 650 Output Total 150 Balance -150 650 Intake: IV 300 0.9@100 300 Oral 350 Output: Urine 150 Other: Voiding Method Indwelling Catheter Indwelling Catheter # Bowel Movements 1 Weight 83 kg 83 kg Blood pressure 111/60 heart rate 77 afebrile maintaining oxygen saturation on nasal cannula 2 L GENERAL: This is a 87-year-old female in no apparent distress at the time of my examination. HEENT: Head is atraumatic, normocephalic. Pupils are equal, round. Sclerae anicteric. Conjunctivae are clear. Mucous membranes of the mouth are moist. Neck is supple. There is no jugular venous distention. No carotid bruit is heard. LUNGS: Clear to auscultation no wheezes, rales or rhonchi. No chest wall tenderness is noted on palpation or with deep breathing. HEART: Regular rate and rhythm without murmurs, rubs or gallops. S1 and S2 heard. ABDOMEN: Soft, nontender. Bowel sounds are heard. No organomegaly noted. EXTREMITIES: No evidence of peripheral edema and no calf tenderness noted. VASCULAR: Radial and dorsalis pedis pulses palpated, no evidence of clubbing. NEUROLOGIC: Patient is awake, alert and oriented x3. Results 09/24/17 05:49 09/24/17 05:49 CBC 09/24/17 Range/Units 05:49 WBC 23.3 H (3.8-10.6) k/uL RBC 3.37 L (3.80-5.40) m/uL Hgb 10.1 L (11.4-16.0) gm/dL Hct 31.6 L (34.0-46.0) % Plt Count 187 (150-450) k/uL Comprehensive Metabolic Panel 09/24/17 Range/Units 05:49 Sodium 136 L (137-145) mmol/L Potassium 4.8 (3.5-5.1) mmol/L Chloride 103 (98-107) mmol/L Carbon Dioxide 25 (22-30) mmol/L BUN 30 H (7-17) mg/dL Creatinine 1.64 H (0.52-1.04) mg/dL Glucose 87 (74-99) mg/dL Calcium 8.3 L (8.4-10.2) mg/dL Current Medications Generic Name Dose Route Start Last Admin Trade Name Freq PRN Reason Stop Dose Admin Hydrocodone Bitart/Acetaminophen 1 each 09/23/17 13:55 [place] 5-325 PO Q4HR PRN Moderate Pain Lactated Ringer's 1,000 mls @ 100 mls/hr 09/23/17 17:00 09/24/17 11:48 Lactated Ringers IV 100 mls/hr .Q10H MEL Administration Piperacillin/Tazobactam/ 50 mls @ 12.5 mls/hr 09/24/17 10:30 09/24/17 11:49 Dextrose 3.375 gm/ IV Solution IVPB 12.5 mls/hr Q8HR MEL Administration Ibuprofen 400 mg 09/23/17 13:55 Motrin PO Q6HR PRN Mild Pain or Fever > 100.5 Levothyroxine Sodium 100 mcg 09/24/17 06:30 09/24/17 05:46 Synthroid PO 100 mcg 0630 MEL Administration Naloxone HCl 0.2 mg 09/23/17 13:55 Narcan IV Q2M PRN Opioid Reversal Myrbetriq ( 50 mg 09/23/17 17:00 09/24/17 08:02 Mirabegron) 50 Mg PO Not Given DAILY MEL Ondansetron HCl 4 mg 09/23/17 13:55 Zofran IVP Q8HR PRN Nausea And Vomiting Intake and Output 09/24/17 09/24/17 09/24/17 06:59 14:59 22:59 Intake Total 650 Output Total 150 Balance -150 650 Intake: IV 300 0.9@100 300 Oral 350 Output: Urine 150 Other: Voiding Method Indwelling Catheter Indwelling Catheter # Bowel Movements 1 Weight 83 kg 83 kg Patient Weight 09/25/17 06:59 Weight 83 kg 09/24/17 05:49 09/24/17 05:49 Assessment and Plan Assessment: ASSESSMENT 1. Acute urinary tract infection causing sepsis 2. Acute kidney injury 3. Hypertension 4. Mild troponin leak, not indicative of an acute coronary event. Most likely related to sepsis. 5. History of bladder cancer PLAN Mild troponin leak not indicative of an acute coronary event, most likely related to acute sepsis. Obtain 2-D echocardiogram and Doppler study to assess cardiac structure and function. Patient may be transferred to the medical floor. Thank you kindly for this consultation. Nurse Practitioner note has been reviewed, I agree with a documented findings and plan of care. Patient was seen and examined.
--- NOTE | 2017-09-24 16:24 | PN ---
PROGRESS NOTE DATE OF SERVICE: 09/24/2017 PRESENTING COMPLAINT: Chills, rigors. INTERVAL HISTORY: This patient presented with severe UTI, sepsis. Continues to feel weak and tired, rundown, not much of an appetite, though sit up on a chair. Patient ate a small amount this morning. She is on IV fluids and antibiotics. REVIEW OF SYSTEMS: Done for constitutional, cardiovascular, GI, pulmonary; relevant findings as above. CURRENT MEDICATIONS: Reviewed. They include IV Zosyn and IV fluids. PHYSICAL EXAMINATION: On examination, afebrile, pulse 83, respiration 18, blood pressure 111/60, pulse ox 96% on 2 L. GENERAL APPEARANCE: Sitting up, tired-appearing. EYES: Pupils equal. Conjunctivae normal. HEENT: External appearance of nose and ears normal. Oral cavity normal. NECK: JVD not raised. Mass not palpable. RESPIRATORY: Effort normal. LUNGS: Fair air entry. CARDIOVASCULAR: First and second sounds normal. No edema. ABDOMEN: Soft, non-tender. Liver and spleen not palpable. PSYCHIATRY: Alert and oriented x3. Mood and affect low-appearing. INVESTIGATIONS: White count 23.3, hemoglobin 10.1, potassium 4.8, BUN 30, creatinine 1.64. ASSESSMENT: 1. Acute complicated urinary tract infection with cystitis causing sepsis, present on admission, slow to respond. 2. Bladder cancer. Patient was due to follow up at [facility] plus follow up with Dr. Bey. 3. Troponin leak, probably from hemodynamic mismatch. No evidence of acute coronary syndrome. 4. Acute renal failure, probably acute tubular necrosis from sepsis, worsening. 5. Obesity; body mass index 30.4. 6. Essential hypertension. 7. Hypothyroid. PLAN: Continue with IV fluids, antibiotics. Prognosis guarded. Care was discussed with the patient. ADVANCED CARE PLANNING: This was discussed with the patient at length. The patient did state her friend in [place] is her DPOA and is probably flying in tomorrow. Patient understands the overall guarded prognosis and wishes to be DO NOT RESUSCITATE if her heart or lungs stop working, I will put her down as DO NOT RESUSCITATE. This additionally took about 20-25 minutes for advanced care planning. MMODL / IJN: [id number] /
--- NOTE | 2017-09-24 22:04 | P.CONS ---
History of Present Illness - Reason for Consult Consult date: 09/24/17 Bladder Cancer with History of Urothelial Cancer Requesting physician: Chris Bartholomew - Chief Complaint Shaking - History of Present Illness Mrs. aJy is a pleasant 87-year-old female past medical history significant for uterine cancer, breast cancer, htn and most recently High Grade urothelial carcinoma. 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 Because of her history of uterine cancer she has already received radiation to her pelvis. She did not want chemotherapy therefore the plan was to go to [facility] for further recommendations, although with her overall performance she was considering other options and planning on enrolling in hospice care. On 09/23/17, she was admitted for increasing weakness, nausea, vomiting, and rigors at home. She admits to decreased po intake and appetite. Subjective fevers and chills. On admission she was found to have cystitis and given IV antibiotics. During her incidence of rigors the day prior to admission she admits to fall from standing. She was unable to stand on her own and was transported to the hospital via EMS. She has a chronic garsia catheter after her recent surgery. During ER evaluation, her cardiac enzymes were elevated. She denied any chest pain, dizziness, SOB, or palpitations. 09/24/17 - During evaluation this am she is feeling better. She has remained afebrile since admission. Review of Systems A 14 point review of systems assessed and completed all negative except HPI. Past Medical History Past Medical History: Hypertension, Thyroid Disorder Additional Past Medical History / Comment(s): CA uterine, breast cancer 2006 ( radiation treatment - patient says it was breast was a very vague diagnosis and was sent to 2 different labs)- urosepsis 12/06, low calcium, anemia, recurrent UTI's, bladder cancer(sx) History of Any Multi-Drug Resistant Organisms: None Reported Past Surgical History: Bladder Surgery, Hysterectomy, Joint Replacement, Tonsillectomy Additional Past Surgical History / Comment(s): right knee replacement, cataracts bilateral, surgery on bilateral feet. Past Anesthesia/Blood Transfusion Reactions: No Reported Reaction Past Psychological History: No Psychological Hx Reported Smoking Status: Former smoker Past Alcohol Use History: None Reported Additional Past Alcohol Use History / Comment(s): smoked 20-25 years socially quit 25 years ago Past Drug Use History: None Reported - Past Family History Father Family Medical History: Cancer Additional Family Medical History / Comment(s): TESTICULAR Mother Family Medical History: No Reported History Medications and Allergies Home Medications Medication Instructions Recorded Confirmed Type Levothyroxine Sodium [Synthroid] 100 mcg PO DAILY 12/25/16 09/23/17 History Lisinopril [Zestril] 20 mg PO DAILY 07/18/17 09/23/17 History Cystex Cranberry 15 ml PO DAILY 09/23/17 09/23/17 History Mirabegron [Myrbetriq] 50 mg PO DAILY 09/23/17 09/23/17 History Allergies Allergy/AdvReac Type Severity Reaction Status Date / Time No Known Allergies Allergy Verified 09/23/17 11:51 Physical Exam Vitals: Vital Signs Temp Pulse Pulse Resp BP BP Pulse Ox 09/24/17 08:00 97.2 F L 93 18 134/54 97 09/24/17 04:00 97 F L 82 20 128/59 98 09/24/17 00:00 96.6 F L 84 16 103/58 98 09/23/17 20:00 97.1 F L 77 24 105/51 94 L 09/23/17 16:00 16 09/23/17 15:27 97 F L 81 16 98/41 99 09/23/17 15:05 98.1 F 83 20 97/55 94 L Intake and Output 09/23/17 09/24/17 09/24/17 22:59 06:59 14:59 Intake Total 300 Output Total 150 Balance -150 300 Intake: IV 300 0.9@100 300 Output: Urine 150 Other: Voiding Method Indwelling Catheter Indwelling Catheter Indwelling Catheter # Bowel Movements 1 1 Weight 84 kg 83 kg - Constitutional General appearance: cooperative, no acute distress - EENT Eyes: EOMI, dentition normal ENT: hard of hearing, NA/AT, normal oropharynx - Neck Neck: normal ROM - Respiratory Respiratory: bilateral: diminished (bibasilar, no increased effort) - Cardiovascular Rhythm: irregularly irregular - Gastrointestinal Catheter chronic with sedimented urine General gastrointestinal: soft, tenderness - Integumentary Integumentary: pale - Musculoskeletal Musculoskeletal: generalized weakness, strength equal bilaterally - Psychiatric Psychiatric: A&O x's 3, appropriate affect, intact judgment & insight Results CBC & Chem 7: 09/24/17 05:49 09/24/17 05:49 Labs: Abnormal Lab Results - Last 24 Hours (Table) 09/24/17 09/24/17 Range/Units 05:49 05:49 WBC 23.3 H (3.8-10.6) k/uL RBC 3.37 L (3.80-5.40) m/uL Hgb 10.1 L (11.4-16.0) gm/dL Hct 31.6 L (34.0-46.0) % Neutrophils # (Manual) 21.20 H (1.3-7.7) k/uL Lymphocytes # (Manual) 0.70 L (1.0-4.8) k/uL Metamyelocytes # (Man) 0.70 H (0) k/uL Sodium 136 L (137-145) mmol/L BUN 30 H (7-17) mg/dL Creatinine 1.64 H (0.52-1.04) mg/dL Calcium 8.3 L (8.4-10.2) mg/dL Microbiology - Last 24 Hours (Table) 09/23/17 12:30 Urine Culture - Preliminary Urine,Catheterized Assessment and Plan Plan: Assessment and Recommendations: 1. Recent Diagnosis of High Grade Urothelial Carcinoma - Status Post TURPT Bladder Resection - Unable to undergo further pelvic radiation secondary to previous pelvic radiation for uterine cancer - Initally refused chemotherapy and was planning on seeking further evaluation at [facility] - Interested in all treatment options, unsure if she wants to receive treatment with chemotherapy, Dr. Castrejon to further evaluate in am. - Further recommendations to follow after acute infection improves and patient stabilizes 2. COmplicated UTI, Cystitis - Symptomatic - IV antibiotics - Per Primary Team 3. Elevated troponins - Resolved 4. History of Breast and Uterine Cancer with previous treatment 5. Leukocytosis - Reactive to infection, SIRS, Sepsis 6. Normocytic Anemia - Likely DIlutional 7. Acute Renal Insufficiency - secondary to cystitis Physician Attestation: I have completed the full history and physical of this patient and agree with above dictation by Denisse George NP dictated as a scribe
--- NOTE | 2017-09-24 22:40 | P.GSCN ---
History of Present Illness Consult date: 09/24/17 Reason for Consult: Bladder cancer, UTI, hydronephrosis Requesting physician: Bassam Greenberg History of present illness: The patient is an 87-year-old white female well known to Dr. Bey. 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 She denies dysuria and hematuria. She was admitted after falling. Urinalysis is suggestive of a UTI. The computed tomography scan shows bilateral hydronephrosis. The patient was initially seen by Dr. Bey in 02/2017 for evaluation of recurrent urinary tract infections. She developed nausea and vomiting and was admitted to [facility] in November 2016. Urinalysis showed evidence of an Escherichia coli infection; however blood cultures were negative. She denied dysuria or a change in urinary frequency at the time that she was admitted. CT scan of the abdomen and pelvis with IV contrast on 12/01/2016 showed bilateral parapelvic cysts but no other renal abnormality. Diffuse colonic diverticulosis with possible sigmoid colon diverticulitis was present. 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 The patient improved with antibiotic treatment. Ultrasound biopsy of the mass was scheduled on 02/05/2017 but the mass had regressed to 1.5 x 2 cm and no biopsy was done. She had been treated 4 times with antibiotics since then when urine cultures have been positive although she has never had any symptoms of an infection. 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 She says that she is in remission based on her last examination. She says her bowels have been fairly regular and had a colonoscopy within the last year that showed no problems. Her liver lesion has apparently regressed without treatment. She had gross hematuria several times in May 2017. Cystoscopy on 06/20/2017 identified erythema with irregularity and evidence of neovascularity of the anterior bladder wall near the bladder neck. No exophytic tumor was present and it was unclear whether this represented post radiation changes or neoplasm. Urine cytology at that time was suspicious for low grade urothelial cancer. 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 An attempt to resect the residual tumor was done on 08/05, revealing persistent urothelial carcinoma with lamina propria invasion. She was referred to [facility] but was unable to make the trip due to her urinary incontinence. Review of Systems - Constitutional Reports fatigue - Gastrointestinal Reports nausea - Genitourinary Genitourinary: Denies dysuria, Denies hematuria Past Medical History Past Medical History: Hypertension, Thyroid Disorder Additional Past Medical History / Comment(s): CA uterine, breast cancer 2006 ( radiation treatment - patient says it was breast was a very vague diagnosis and was sent to 2 different labs)- urosepsis 12/06, low calcium, anemia, recurrent UTI's, bladder cancer(sx) -2017 History of Any Multi-Drug Resistant Organisms: None Reported Past Surgical History: Bladder Surgery, Hysterectomy, Joint Replacement, Tonsillectomy Additional Past Surgical History / Comment(s): right knee replacement, cataracts bilateral, surgery on bilateral feet. Past Anesthesia/Blood Transfusion Reactions: No Reported Reaction Past Psychological History: No Psychological Hx Reported Smoking Status: Former smoker Past Alcohol Use History: None Reported Additional Past Alcohol Use History / Comment(s): smoked 20-25 years socially quit 25 years ago Past Drug Use History: None Reported - Past Family History Father Family Medical History: Cancer Additional Family Medical History / Comment(s): TESTICULAR Mother Family Medical History: No Reported History Medications and Allergies Home Medications Medication Instructions Recorded Confirmed Type Levothyroxine Sodium [Synthroid] 100 mcg PO DAILY 12/25/16 09/23/17 History Lisinopril [Zestril] 20 mg PO DAILY 07/18/17 09/23/17 History Cystex Cranberry 15 ml PO DAILY 09/23/17 09/23/17 History Mirabegron [Myrbetriq] 50 mg PO DAILY 09/23/17 09/23/17 History Allergies Allergy/AdvReac Type Severity Reaction Status Date / Time No Known Allergies Allergy Verified 09/23/17 11:51 Surgical - Exam Vital Signs Temp Pulse Resp BP Pulse Ox 97.4 F L 100 18 153/77 95 09/23/17 11:07 09/23/17 11:07 09/23/17 11:07 09/23/17 11:07 09/23/17 11:07 - General well developed, well nourished, no distress - Respiratory normal respiratory effort - Abdomen Abdomen: soft, non tender, no guarding, no rigid, no rebound - Psychiatric oriented to time, oriented to person, oriented to place, speech is normal, memory intact Results - Labs 09/24/17 05:49 09/24/17 05:49 Abnormal Lab Results - Last 24 Hours (Table) 09/24/17 09/24/17 Range/Units 05:49 05:49 WBC 23.3 H (3.8-10.6) k/uL RBC 3.37 L (3.80-5.40) m/uL Hgb 10.1 L (11.4-16.0) gm/dL Hct 31.6 L (34.0-46.0) % Neutrophils # (Manual) 21.20 H (1.3-7.7) k/uL Lymphocytes # (Manual) 0.70 L (1.0-4.8) k/uL Metamyelocytes # (Man) 0.70 H (0) k/uL Sodium 136 L (137-145) mmol/L BUN 30 H (7-17) mg/dL Creatinine 1.64 H (0.52-1.04) mg/dL Calcium 8.3 L (8.4-10.2) mg/dL Microbiology - Last 24 Hours (Table) 09/23/17 12:30 Urine Culture - Preliminary Urine,Catheterized Diabetes panel 09/24/17 Range/Units 05:49 Sodium 136 L (137-145) mmol/L Potassium 4.8 (3.5-5.1) mmol/L Chloride 103 (98-107) mmol/L Carbon Dioxide 25 (22-30) mmol/L BUN 30 H (7-17) mg/dL Creatinine 1.64 H (0.52-1.04) mg/dL Glucose 87 (74-99) mg/dL Calcium 8.3 L (8.4-10.2) mg/dL Calcium panel 09/24/17 Range/Units 05:49 Calcium 8.3 L (8.4-10.2) mg/dL Pituitary panel 09/24/17 Range/Units 05:49 Sodium 136 L (137-145) mmol/L Potassium 4.8 (3.5-5.1) mmol/L Chloride 103 (98-107) mmol/L Carbon Dioxide 25 (22-30) mmol/L BUN 30 H (7-17) mg/dL Creatinine 1.64 H (0.52-1.04) mg/dL Glucose 87 (74-99) mg/dL Calcium 8.3 L (8.4-10.2) mg/dL Adrenal panel 09/24/17 Range/Units 05:49 Sodium 136 L (137-145) mmol/L Potassium 4.8 (3.5-5.1) mmol/L Chloride 103 (98-107) mmol/L Carbon Dioxide 25 (22-30) mmol/L BUN 30 H (7-17) mg/dL Creatinine 1.64 H (0.52-1.04) mg/dL Glucose 87 (74-99) mg/dL Calcium 8.3 L (8.4-10.2) mg/dL - Imaging CT scan - abdomen: report reviewed, image reviewed Assessment and Plan (1) Bladder cancer Current Visit: Yes Status: Acute Code(s): C67.9 - MALIGNANT NEOPLASM OF BLADDER, UNSPECIFIED SNOMED Code(s): 820106998 (2) Hydronephrosis Current Visit: Yes Status: Acute Code(s): N13.30 - UNSPECIFIED HYDRONEPHROSIS SNOMED Code(s): 26935327 Plan: I had a lengthy discussion with the patient and her friend. She understands clearly the nature of her condition. She is extremely reluctant to undergo a cystectomy with ileal conduit uurinary diversion in view of her age. She has previously received pelvic radiation for endometrial carcinoma and thus likely cannot receive additional radiation therapy. She will likely be agreeable to treatment with chemotherapy. Dr. Castrejon has been consulted. She should continue to receive IV antibiotics, pending the urine culture result. If her renal function fails to improve, ureteral stent placement will need to be considered. Time with Patient: Greater than 30
[2017-09-25] MEDS: LACTATED RINGERS 1,000 ML IV SCH ×3 (01:10→20:08)
[2017-09-25] MEDS: PIPERACILLIN-TAZOBACTAM 3.375 GM in DEXTROSE/WATER 1 50ML.BAG IVPB SCH ×3 (01:10→16:23)
[2017-09-25] MEDS: LEVOTHYROXINE 100 MCG TAB PO SCH (06:28)
[2017-09-25] MEDS: MYRBETRIQ (Mirabegron) 50 MG PO SCH (07:34)
--- NOTE | 2017-09-25 08:19 | ECHOF ---
Referral Reason:elevated trop MEASUREMENTS -------- HEIGHT: 165.1 cm WEIGHT: 82.6 kg BP: 134/54 RVIDd: 2.8 cm (< 3.3) IVSd: 1.3 cm (0.6 - 1.1) LVIDd: 4.7 cm (3.9 - 5.3) LVPWd: 1.3 cm (0.6 - 1.1) IVSs: 1.4 cm LVIDs: 3.2 cm LVPWs: 1.4 cm LAESV Index (A-L): 32.69 ml/m Ao Diam: 2.3 cm (2.0 - 3.7) AV Cusp: 1.5 cm (1.5 - 2.6) LA Diam: 3.6 cm (2.7 - 3.8) MV E Barber: 1.28 m/s MV DecT: 334 ms MV A Barber: 1.71 m/s MV E/A Ratio: 0.75 RAP: 5.00 mmHg RVSP: 24.40 mmHg FINDINGS -------- Sinus rhythm. This was a technically adequate study. The left ventricular size is normal. There is mild concentric left ventricular hypertrophy. Overa ll left ventricular systolic function is normal with, an EF between 55 - 60 %. The right ventricle is normal in size and function. LA is midly dilated 29-33ml/m2. The right atrium is normal in size. There is moderate aortic valve sclerosis. Moderate mitral annular calcification present. Mild mitral regurgitation is present. Mild tricuspid regurgitation present. Right ventricular systolic pressure is normal at < 35 mmHg. There is no evidence of pulmonary hypertension. Trace/mild (physiologic) pulmonic regurgitation. The aortic root size is normal. Normal inferior vena cava with normal inspiratory collapse consistent with estimated right atrial pre ssure of 5 mmHg. There is no pericardial effusion. CONCLUSIONS -------- 1. Sinus rhythm. 2. This was a technically adequate study. 3. The left ventricular size is normal. 4. There is mild concentric left ventricular hypertrophy. 5. Overall left ventricular systolic function is normal with, an EF between 55 - 60 %. 6. LA is midly dilated 29-33ml/m2. 7. There is moderate aortic valve sclerosis. 8. Moderate mitral annular calcification present. 9. Mild mitral regurgitation is present. 10. Mild tricuspid regurgitation present. 11. Right ventricular systolic pressure is normal at < 35 mmHg. 12. Trace/mild (physiologic) pulmonic regurgitation. 13. The aortic root size is normal. 14. There is no pericardial effusion. ROLL FORMING MACHINE OPERATOR: Redd Arango RDCS
[2017-09-25 08:55] LABS: HCT 31.9 % (34.0-46.0); HGB 10.4 gm/dL (11.4-16.0); MCH 30.7 pg (25.0-35.0); MCHC 32.5 g/dL (31.0-37.0); MCV 94.4 fL (80.0-100.0); Mean Platelet Volume 6.9; Platelet Count 169 k/uL (150-450); RBC 3.38 m/uL (3.80-5.40); RDW 14.1 % (11.5-15.5); WBC 18.1 k/uL (3.8-10.6)
[2017-09-25 09:05] LABS: Albumin 2.5 g/dL (3.5-5.0); Calcium 8.4 mg/dL (8.4-10.2); Potassium 4.5 mmol/L (3.5-5.1); Total Bilirubin 0.3 mg/dL (0.2-1.3); Total Protein 5.2 g/dL (6.3-8.2)
--- NOTE | 2017-09-25 14:44 | P.PN ---
Subjective Progress Note Date: 09/25/17 This is a pleasant 87-year-old female with past medical history significant for hypertension, hypothyroidism, uterine cancer, breast cancer, and current bladder cancer.Cardiology was requested to see the patient because of troponin abnormality. She was seen in consultation yesterday by Dr. Madyson Chaudhry, an echocardiogram with Doppler study was performed which revealed a normal left ventricular systolic function. Hemodynamically patient is stable today. We will continue to follow on an as-needed basis. Objective - Vital Signs Vital signs: Vital Signs Temp 98.0 F 09/25/17 11:46 Pulse 75 09/25/17 11:46 Resp 18 09/25/17 11:46 BP 121/58 09/25/17 11:46 Pulse Ox 99 09/25/17 11:46 Intake & Output 09/24/17 09/25/17 09/25/17 18:59 06:59 18:59 Intake Total 1999 1130 Output Total 1700 Balance 1999 -170 1130 Weight 83 kg 81.4 kg Intake: IV 1300 600 0.9@100 1300 600 Intake, IV Titration 100 50 Amount Piperacillin-Tazobactam 3 100 50 .375 gm In Dextrose/Water 1 50ml.bag @ 12.5 mls/hr IVPB Q8HR MEL Rx#: [id number] Oral 600 480 Output: Urine 1700 Other: Voiding Method Indwelling Catheter Indwelling Catheter Indwelling Catheter # Bowel Movements 1 - Exam PHYSICAL EXAMINATION: GENERAL: This is an 87-year-old female in no apparent distress at the time of my examination. HEENT: Head is atraumatic, normocephalic. Pupils equal, round. Sclera anicteric. Conjunctiva are clear. Mucous membranes of the mouth are moist. Neck is supple. There is no elevated jugular venous pressure.] bruit is heard. HEART EXAMINATION: Heart S1, S2 normal. No murmur or gallop heard. CHEST EXAMINATION: Lungs are clear to auscultation and precussion. No chest wall tenderness is noted on palpation or with deep breathing. ABDOMEN: Soft, nontender. Bowel sounds are heard. No organomegaly noted. EXTREMITIES: 2+ peripheral pulses with no evidence of peripheral edema and no calf tenderness noted. NEUROLOGIC patient is awake, alert and oriented -3. . - Labs CBC & Chem 7: 09/25/17 08:35 09/25/17 08:35 Labs: Abnormal Lab Results - Last 24 Hours (Table) 09/25/17 09/25/17 Range/Units 08:35 08:35 WBC 18.1 H (3.8-10.6) k/uL RBC 3.38 L (3.80-5.40) m/uL Hgb 10.4 L (11.4-16.0) gm/dL Hct 31.9 L (34.0-46.0) % BUN 26 H (7-17) mg/dL Creatinine 1.16 H (0.52-1.04) mg/dL Glucose 139 H (74-99) mg/dL AST 52 H (14-36) U/L Total Protein 5.2 L (6.3-8.2) g/dL Albumin 2.5 L (3.5-5.0) g/dL Microbiology - Last 24 Hours (Table) 09/23/17 12:30 Urine Culture - Preliminary Urine,Catheterized Gram Neg Bacilli Assessment and Plan Plan: ASSESSMENT 1. Acute urinary tract infection causing sepsis 2. Acute kidney injury 3. Hypertension 4. Mild troponin leak, not indicative of an acute coronary event. Most likely related to sepsis. 5. History of bladder cancer Plan Echocardiogram with Doppler study revealed normal left ventricular systolic function. From cardiology's perspective, we'll follow this patient with you now on an as-needed basis only, please don't hesitate to call with any questions. DNP note has been reviewed, I agree with a documented findings and plan of care. Patient was seen and examined.
--- NOTE | 2017-09-25 17:13 | P.PN ---
Progress Note - Text Progress Note Date: 09/25/17 The patient is afebrile and says she feels much better than when she came in. Her appetite has improved. Her urine is grossly clear. Preliminary blood culture is no growth. Urine culture from her catheter is growing a gram- negative bronson. Creatinine today is improved at 1.16. I discussed with the patient possibility of chemotherapy or chemotherapy plus radical cystectomy for treatment of her bladder cancer. At the present time the patient is not ready to make a decision and I encouraged her to discuss the possibility of chemotherapy with a local oncologist. The patient says that she will probably be going to a rehab facility tomorrow and an appointment with an oncologist could be set up as an outpatient. The patient does have left hydronephrosis but her creatinine has improved with hydration and in view of this I do not feel that placement of a left double-J catheter will be necessary.
[2017-09-26] MEDS: PIPERACILLIN-TAZOBACTAM 3.375 GM in DEXTROSE/WATER 1 50ML.BAG IVPB SCH (00:23)
[2017-09-26] MEDS: LACTATED RINGERS 1,000 ML IV SCH ×2 (06:13→19:23)
[2017-09-26] MEDS: LEVOTHYROXINE 100 MCG TAB PO SCH (06:14)
--- NOTE | 2017-09-26 08:38 | PN ---
PROGRESS NOTE DATE OF SERVICE: 09/25/2017 PRESENTING COMPLAINT: Tired. INTERVAL HISTORY: This patient was seen by me yesterday on 09/25/2017. The patient presented with severe UTI, sepsis. Feeling much better this morning. Actually eating better, eating light food. Zarco catheter remains in place. The patient's two friends are sitting with her. Definitely patient is more perked up. REVIEW OF SYSTEMS: Review of systems done for constitutional, cardiovascular, GI, pulmonary; relevant findings as above. CURRENT MEDICATIONS: Current medications are reviewed that include IV Zosyn. PHYSICAL EXAMINATION: On examination, temperature 97, pulse 82, respirations 18, blood [id number]/58, pulse ox 96% on 2 L. GENERAL APPEARANCE: Sitting up on a chair, far more awake, looking better. EYES: Pupil equal. Conjunctivae normal. HENT: External appearance of nose and ears normal. Oral cavity normal. NECK: JVD not raised. Mass not palpable. RESPIRATORY: Effort normal. LUNGS: Fair entry. CARDIOVASCULAR: First and second sounds normal. No edema. ABDOMEN: Soft, nontender. Liver and spleen not palpable. PSYCHIATRY: Alert and oriented x3. Mood and affect more perked up. INVESTIGATIONS: White count 18.1, hemoglobin 10.4. BUN 26, creatinine 1.16. Albumin 2.5. Urine culture growing E coli. ASSESSMENT: 1. Acute complicated urinary tract infection with cystitis causing sepsis, present on admission. Cultures growing Escherichia coli. 2. Bladder cancer. The patient has canceled her appointment at [facility], was following locally with Dr. Bey. 3. Troponin leak from hemodynamic mismatch from underlying sepsis. No acute coronary syndrome. 4. Acute renal failure probably from acute tubular necrosis and prerenal from sepsis started to turn around. 5. Obesity; body mass index 30.4. 6. Essential hypertension. 7. Hypothyroid. PLAN: I had a very lengthy talk with the patient and her two friends. At this point, the patient is not very keen to proceed with any surgery or chemo and will like to hold back on the decision of the same. She does want to talk to Dr. Castrejon and awaiting a meeting for the same. She also wanted to know the pros and cons if she did not go through with any further treatment. I did inform her that this will be best discussed with Dr. Bey, her urologist. Several other aspects of care was discussed in detail with the patient and the friends. When I left the room, the patient is awaiting to talk to Urology and also Dr. Castrejon and we are looking at patient going to rehab. Total time spent was about 40 minutes with over 25 minutes of discussion. EMILY / JANNA: [id number] /
[2017-09-26] MEDS ORDERED: CEPHALEXIN 500 MG CAP PO SCH (09:00)
[2017-09-26] MEDS: CEPHALEXIN 500 MG CAP PO SCH ×2 (09:58→20:38)
[2017-09-26] MEDS: MYRBETRIQ (Mirabegron) 50 MG PO SCH (10:00)
--- NOTE | 2017-09-26 20:26 | PN ---
PROGRESS NOTE DATE OF SERVICE: 09/26/2017. PRESENTING COMPLAINT: Tired. INTERVAL HISTORY: This patient presented with severe UTI, sepsis, has underlying bladder cancer. Zarco catheter remains in place. Tolerating a diet. Looking to go to inpatient rehab. REVIEW OF SYSTEMS: Done for constitutional, cardiovascular, GI, pulmonary; relevant findings as above. CURRENT MEDICATIONS: Reviewed that include Keflex. EXAMINATION: Temperature 97.9, pulse 94, respirations 18, blood pressure 147/72, pulse ox 97% on room air. GENERAL APPEARANCE: Lying in bed, comfortable. EYES: Pupils equal. Conjunctivae normal. HEENT: External nose and ears normal. Oral cavity normal. NECK: JVD not raised. Mass not palpable. RESPIRATORY: Effort normal. LUNGS: Clear. CARDIOVASCULAR: First and second sounds normal. No edema. ABDOMEN: Soft, nontender. Liver and spleen not palpable. PSYCHIATRY: Alert and oriented x3. Mood and affect normal. INVESTIGATIONS: White count 18.1, hemoglobin 10.4. BUN 26, creatinine 1.16. Urine culture positive for E. coli. ASSESSMENT: 1. Acute complicated urinary tract infection with cystitis causing sepsis, present on admission. Cultures growing Escherichia coli secondary to Zarco catheter. 2. Bladder cancer. The patient did cancel her appointment at [facility]. 3. Troponin leak from hemodynamic mismatch from underlying sepsis. No acute coronary syndrome. 4. Acute renal failure, probably from acute tubular necrosis and prerenal from sepsis. 5. Obesity; BMI 30.4. 6. Essential hypertension. 7. Hypothyroid. PLAN: I talked to patient this afternoon later. I did speak to Dr. Castrejon from oncology and he told me without surgical intervention, patient has already had prior radiation, just chemo itself may not be too beneficial in terms of the bigger picture and of course, we have to deal with the side effects. The patient is having a family meeting with the oncology team tomorrow. This evening, I did speak with the patient again and gave her a brief synopsis of what Dr. Castrejon had told me, as she was rather curious. In the meantime, looking into the patient going to the rehab. Total time spent today was about 40 minutes with over 25 minutes of discussion. MMJOSETTEL / FRITZN: [id number] /
[2017-09-26 23:04] VITALS: RESP 16
[2017-09-27] MEDS: LACTATED RINGERS 1,000 ML IV SCH ×2 (03:18→14:55)
[2017-09-27] MEDS: LEVOTHYROXINE 100 MCG TAB PO SCH (05:55)
[2017-09-27 06:57] VITALS: BP 157/68; PULSE 73; TEMP 97.5
[2017-09-27] MEDS: MYRBETRIQ (Mirabegron) 50 MG PO SCH (07:18)
[2017-09-27] MEDS: CEPHALEXIN 500 MG CAP PO SCH (07:23)
[2017-09-27 10:28] VITALS: BMI 29.8
--- NOTE | 2017-09-27 15:03 | DS ---
DISCHARGE SUMMARY DATE OF ADMISSION: 09/23/2017 DATE OF DISCHARGE: 09/27/2017 FINAL DIAGNOSES: 1. Acute complicated urinary tract infection with cystitis causing sepsis, present on admission with cultures growing Escherichia coli secondary to Zarco catheter. 2. Bladder cancer, advanced. 3. Troponin leak from hemodynamic mismatch from underlying sepsis, no acute coronary artery syndrome. 4. Acute renal failure, probably acute tubular necrosis and prerenal from sepsis. 5. Obesity; body mass index 30.4. 6. Essential hypertension. 7. Hypothyroid. HOSPITAL COURSE: This is a very pleasant patient who follows Dr. Kendall and also has got bladder cancer being followed by Dr. Bey who referred the patient down to [facility]. Patient presented with losing weight, no appetite, chills, rigors, found to have a UTI with sepsis. Cultures did grow E. coli. Symptoms improved with antibiotics. Patient was seen by Dr. Bey and at this point, patient does not really want any surgery or radiation. She has had radiation before, chemo by itself may not be very helpful. Patient is having a meeting with Dr. Castrejon's team this afternoon and probably may not lean towards any treatment. Otherwise, patient has been tolerating a diet. Has a chronic Zarco catheter. Patient's code status is DO NOT RESUSCITATE. Care was discussed at length with the patient today. Questions were answered. CONSULTATIONS: 1. Dr. Bey from Urology. 2. Dr. Graham Chaudhry from Cardiology. 3. Dr. Castrejon from Oncology. Patient is seen by Cardiology because of troponin leak, felt to be from sepsis. DISCHARGE MEDICATIONS: 1. Synthroid 100 mcg p.o. daily. 2. Cystex cranberry 50 mL p.o. daily. 3. Myrbetriq 50 mg p.o. daily. 4. Keflex 100 mg p.o. b.i.d., 14 capsules. 5. Lopressor 12.5 p.o. b.i.d. 6. Discontinued medications lisinopril. Follow up with Dr. Castrejon in about a weeks' time. Follow up with Dr. Wyatt at the [facility]. Follow up with Dr. Kesha Kendall after discharge from the [facility]. Patient's urologist, Dr. Bey, patient's Zarco to stay in and to be changed as recommended. PHYSICAL EXAM: Lungs are clear. CARDIOVASCULAR: First and second sounds are normal. ABDOMEN: Soft, nontender. Discharge planning more than 35 minutes. MMODL / IJN: [id number] /
--- NOTE | 2017-09-27 15:51 | P.PN ---
Subjective Progress Note Date: 09/27/17 The patient complains of somewhat generalized weakness, and is awaiting transfer to rehab. She has Zarco catheter in situ. Urine has been clear without recurrence of bleeding. No history of fevers/chills/nausea/vomiting/ lymphadenopathy. Objective - Vital Signs Vital signs: Vital Signs Temp 97.5 F L 09/27/17 05:30 Pulse 73 09/27/17 08:00 Resp 16 09/27/17 08:00 BP 157/68 09/27/17 05:30 Pulse Ox 94 L 09/27/17 07:14 Intake & Output 09/26/17 09/27/17 09/27/17 18:59 06:59 18:59 Intake Total 700 1680 600 Output Total 2000 1700 2200 Balance -1300 -20 -1600 Weight 81.4 kg Intake: Intake, IV Titration 700 850 600 Amount Lactated Ringers 1,000 ml 700 850 600 @ 100 mls/hr IV .Q10H MEL Rx#:[id number] Oral 830 Output: Urine 1999 1700 2200 Other: Voiding Method Indwelling Catheter Indwelling Catheter Indwelling Catheter # Voids 1 - Constitutional General appearance: Present: no acute distress - EENT Eyes: Present: EOMI, PERRLA ENT: Present: hearing grossly normal, normal oropharynx - Respiratory Respiratory: bilateral: CTA - Cardiovascular Rhythm: regular Heart sounds: normal: S1, S2 - Gastrointestinal General gastrointestinal: Present: normal bowel sounds, soft - Integumentary Integumentary: Present: normal - Neurologic Neurologic: Present: CNII-XII intact - Musculoskeletal Musculoskeletal: Present: generalized weakness, strength equal bilaterally - Psychiatric Psychiatric: Present: A&O x's 3, appropriate affect - Labs CBC & Chem 7: 09/25/17 08:35 09/25/17 08:35 Labs: Microbiology - Last 24 Hours (Table) 09/24/17 12:16 Blood Culture - Preliminary Blood No Growth after 72 hours Assessment and Plan (1) Bladder cancer Narrative/Plan: I had a meeting with the patient, as well as friend/family at their own request today. Her diagnosis, prognosis, and treatment options were discussed in detail. She was advised, that the standard of care for localized bladder cancer is treatment with curative intent, with surgery and chemotherapy, or radiation and chemotherapy. However the patient has decided against surgery due to increased surgical risk. She is not a candidate for definitive radiation , having received radiation to the pelvis previously for her uterine cancer. Therefore chemotherapy remains the only option for treatment, assuming that she does desire active treatment. (Immunotherapy is not approved for localized bladder cancer) it was stressed to her, that chemotherapy alone is NOT curative for localized bladder cancer. Therefore the objective of treatment with chemotherapy would be to delay progression. Given her age and somewhat compromised performance status, she would be at increased risk of side effects from conventional combination chemotherapy regimens. She may be able to tolerate single agent, but effectiveness of those in this setting is unknown. It was also discussed with them, that is impossible to know how fast her cancer would grow and when it would spread on its own. In addition it would be hard to estimate benefit in terms of prolongation of life from chemo, when her life expectancy could otherwise been limited by her age and other comorbidities. Their multiple questions which were answered to the best of my ability. The patient cannot receive chemotherapy or radiation while in rehab anyway. After rehab, assuming that her living situation is stable and performance status adequate, she can contact us if she strongly feels that she wants to try chemotherapy. Contact information was given. In that situation I would like to rechallenge her first with a single agent to assess tolerance and and only consider using combination if she handles the single agent well. Case discussed in detail with the admitting service. She is okay for transfer to rehab from our standpoint. Current Visit: Yes Status: Acute Code(s): C67.9 - MALIGNANT NEOPLASM OF BLADDER, UNSPECIFIED SNOMED Code(s): 466973589
== END 2017-09-27 15:55 | DRG 698 ==
LOC: EC 11:04 → 6SEL 13:55 → 5MS5E 09-25 21:11
PROVIDERS: ADMIT Hospitalist; ATTEND Hospitalist
DX: T83.511A Infection and inflammatory reaction due to indwelling urethral catheter, initial encounter (principal); A41.51 Sepsis due to Escherichia coli [E. coli]; N17.0 Acute kidney failure with tubular necrosis; N13.30 Unspecified hydronephrosis; Y84.6 Urinary catheterization as the cause of abnormal reaction of the patient, or of later complication, without mention of misadventure at the time of the procedure; C67.9 Malignant neoplasm of bladder, unspecified; E03.9 Hypothyroidism, unspecified; E66.9 Obesity, unspecified; I10 Essential (primary) hypertension; I44.0 Atrioventricular block, first degree; K57.30 Diverticulosis of large intestine without perforation or abscess without bleeding; K76.9 Liver disease, unspecified; N30.90 Cystitis, unspecified without hematuria; N39.41 Urge incontinence; W19.XXXA Unspecified fall, initial encounter; Z66 Do not resuscitate; Z68.30 Body mass index [BMI] 30.0-30.9, adult; Z79.899 Other long term (current) drug therapy; Z85.3 Personal history of malignant neoplasm of breast; Z85.42 Personal history of malignant neoplasm of other parts of uterus; Z87.440 Personal history of urinary (tract) infections; Z87.891 Personal history of nicotine dependence; Z90.710 Acquired absence of both cervix and uterus; Z92.3 Personal history of irradiation; Z96.653 Presence of artificial knee joint, bilateral; Z79.890 Hormone replacement therapy; R77.8 Other specified abnormalities of plasma proteins
CPT/HCPCS: 36415; 71046; 74176; 80048; 80053; 81001; 84484; 85025; 85027; 87040; 87077; 87086; 87186; 93005; 93306; 94760; 99285